=== PATIENT | male | born 1990 | race Caucasian/White ===

== ENCOUNTER 2021-03-11 13:34 | Outpatient (CLI) | payer MEDICAID, SELFPAY ==
--- NOTE | 2021-03-11 13:40 | XR_ITS ---
WS: [id number] LATERAL LUMBAR SPINE: 3 view. Lateral radiographs are performed in upright neutral, flexion and extension to the patient's toleranc e. HISTORY: LOW BACK PAIN COMPARISON: None available. Normal posterior lumbar alignment. No disc space narrowing or fracture. Mild facet joint arthritis L4 -5 and L5-S1. With flexion and extension there is no instability. XR/XR lumbar spine f/e only [id number] IMPRESSION: No lumbar spine instability.
--- NOTE | 2021-03-11 13:41 | CT_ITS ---
WS: [id number] CT LUMBAR SPINE, noncontrast. HISTORY: LOW BACK PAIN TECHNIQUE: Contiguous 2.5 mm axial imaging are performed. Sagittal and coronal reformats are submitte d and reviewed. All CT scans at [facility] use at least one of these dose optimization techni ques: automated exposure control; mA and/or kV adjustment per patient size (includes targeted exams w here dose is matched to clinical indication); or iterative reconstruction. IV contrast: None DLP: 2043.98 mGycm COMPARISON: None available. Normal posterior lumbar alignment. Disc spaces and vertebral body heights are normal. Very mild facet joint arthritis at L5-S1. No pars defects. L1-2: Normal. L2-3: Normal. L3-4: Very minimal symmetric annular disc bulging with no stenosis or protrusion. L4-5: Mild annular disc bulging. No stenosis or protrusions. Mild facet joint arthritis. L5-S1: Mild diffuse annular disc bulging. Broad-based disc bulging posteriorly encroaching upon the v entral thecal sac. There is very mild foraminal narrowing due to combination of osteophytes from the vertebral bodies and the disc bulging. Visualized retroperitoneum is normal. CT/CT lumbar spine wo con* [id number] IMPRESSION: 1. No high-grade central or foraminal stenosis. 2. No lumbar spine fracture. 3. Mild bilateral foraminal narrowing at L5-S1 due to small vertebral body ost eophytes and annular disc bulging.
== END 2021-03-11 13:35 | disposition home or self-care (01) ==
PROVIDERS: Visit Provider Nurse Practitioner
DX: M25.78 Osteophyte, vertebrae (principal); M51.27 Other intervertebral disc displacement, lumbosacral region
CPT/HCPCS: 72120; 72131

== ENCOUNTER 2021-04-12 14:22 | Inpatient (IN) | payer MEDICAID, SELFPAY ==
[2021-04-12 14:44] VITALS: BP 136/89; PULSE 81; RESP 18; TEMP 36.6; O2SAT 99; BMI 25.8
--- NOTE | 2021-04-12 14:52 | W.ED.PSYCHS ---
HPI - Psych General: Chief Complaint: Psychiatric Symptoms Stated Complaint: SI, possibly due to new meds Time Seen by Provider: 04/12/21 14:52 History of Present Illness: HPI Narrative: Mr. Cruz is a 31-year-old gentleman with significant past medical history of depression who presents emergency department due to suicidal ideation. He reports a longstanding history of depression and has been more or less on his current medication regimen for a number of years. He has had dose adjustments including adjustment off and onto his Trintellix. Recently he was stopped on his Xanax. Since that time he has noted behavior changes and missing time. He woke up this morning on the side of the road and does not recall how he got there. He endorses his mother noticing behavior changes. He does not specifically endorse suicidal ideation but says that he feels weird and has this deep down sense of doom. He denies suicide plan. No hallucinations. Overall the course of symptoms has been worsening. He has not had similar episodes of past. No other specific exacerbating or alleviating factors identified. Review of Systems General: Reports: 10 or more systems reviewed and unremarkable except in HPI and below PFSH ED PFSH: Medical History Psychiatric care Physical Exam Narrative: EXAM NARRATIVE: GENERAL/CONSTITUTIONAL - well-appearing. No acute distress. Eyes -no scleral icterus, no conjunctival injection ENMT - Atraumatic external nose and ears. Moist mucous membranes NECK - supple. trachea midline CARDIOVASCULAR - regular rate and rhythm. RESPIRATORY -clear to auscultation bilaterally. ABDOMEN/GI - Nontender/Nondistended. MSK - Extremities without obvious deformity or tenderness to palpation SKIN - Warm, Dry NEURO - alert and appropriately oriented. Moves all extremities equally. PSYCH -somewhat anxious Course ED course: - Patient was seen and evaluated by me at bedside - Patient placed on cardiac monitors, IV access obtained - Initial evaluation notable for exam as noted above, no acute distress, nontoxic. No evidence of psychosis - Labs notable for no significant abnormality that would explain patient's symptoms. - There are some symptoms that patient expresses in history which are atypical for psychiatric etiology, additionally change in characteristic of headaches. Therefore imaging warranted, Imaging notable for no mass or intracranial hemorrhage. - Based on patient history, evaluation, labs, and imaging as interpreted the most likely cause of the patient's condition is worsening depression with suicidal ideation - Based on ED evaluation at this point there is no obvious condition that would preclude the patient from inpatient management of psychiatric concerns. - Psychiatry service contacted and agreed to admit the patient. - Patient was admitted without further deterioration or significant events. Vital Signs: Vital signs: Vital Signs Temperature 98.4 F 04/15/21 13:43 Pulse Rate 72 04/15/21 13:43 Respiratory Rate 17 04/15/21 13:43 Blood Pressure 110/66 04/15/21 13:43 Pulse Oximetry 98 04/15/21 13:43 MDM - Psych Medical Records: Attestation: I reviewed the patient's medical records. Lab Data: Attestation: I reviewed the patient's lab results. Labs: Lab Results 04/12/21 04/12/21 04/12/21 16:29 16:29 16:30 WBC 7.8 10^3/uL 10^3/ uL (4.0-10.0) RBC 4.76 10^6/uL 10^6 /uL (4.1-5.3) Hgb 15.2 g/dL g/dL (11.7-16.6) Hct 44.0 % % (42.0-52.0) MCV 92.4 fl fl (80-94) MCH 31.9 pg pg (28.0-34.0) MCHC 34.5 g/dL g/dL (30.0-36.0) RDW 12.7 % % (12.1-15.1) Plt Count 229 10^3/cmm 10^3 /cmm (130-400) MPV 10.5 fL H fL (7.4-10.4) Neut % (Auto) 61.2 % % Lymph % (Auto) 31.1 % % Amelia % (Auto) 6.8 % % Eos % (Auto) 0.3 % % Baso % (Auto) 0.3 % % Neut # (Auto) 4.76 10^3/uL 10^3 /uL (1.8-7.7) Lymph # (Auto) 2.4 10^3/uL 10^3/ uL (0.8-4.8) Amelia # (Auto) 0.5 10^3/uL 10^3/ uL (0.2-0.9) Eos # (Auto) 0.0 10^3/uL 10^3/ uL (0.0-0.8) Baso # (Auto) 0.0 10^3/uL 10^3/ uL (0.0-0.1) Nucleated RBC % (a uto) 0 % % Nucleated RBCs # 0.0 /100WBC /100W BC Sodium 137 mmol/L mmol/L (136-145) Potassium 3.6 mmol/L mmol/L (3.5-5.1) Chloride 99 mmol/L mmol/L (98-107) Carbon Dioxide 25 mmol/L mmol/L (22-29) Anion Gap 16.6 (5-19) BUN 12 mg/dL mg/dL (6-20) Creatinine 0.7 mg/dL mg/dL (0.7-1.2) GFR Calculation 130.7 mL/min H mL /min (90-130) Glucose 73 mg/dL mg/dL (65-115) Calculated Osmolal ity 282 mOsm/kg L mOs m/kg (285-295) Calcium 9.5 mg/dL mg/dL (8.5-10.5) Total Bilirubin 0.8 mg/dL mg/dL (0.15-1.2) AST 19 U/L U/L (0-40) ALT 17 U/L U/L (0-41) Alkaline Phosphata se 73 IU/L IU/L (40-130) Total Protein 7.2 g/dL g/dL (6.6-8.7) Albumin 4.8 g/dL g/dL (3.5-5.2) Globulin 2.4 g/dL g/dL (1.3-4.6) TSH 0.52 uIU/mL uIU/m L (0.27-4.20) Salicylates < 0.3 mg/dL L mg/ dL (3-10) Urine Opiates Scre en Negative ng/mL ng /mL (Negative) Acetaminophen < 5.0 ug/mL L ug/ mL (10-30) Ur Barbiturates Sc reen Negative ng/mL ng /mL (Negative) Ur Phencyclidine S crn Negative ng/mL ng /mL (Negative) Ur Amphetamines Sc reen Negative ng/mL ng /mL (Negative) U Benzodiazepines Scrn Negative ng/mL ng /mL (Negative) Urine Cocaine Scre en Negative ng/mL ng /mL (Negative) U Marijuana (THC) Screen Positive ng/mL H ng/mL (Negative) Ethyl Alcohol < 10 mg/dL mg/dL (0-10) Discharge Plan Discharge Admit Provider: Michael Quinteros Condition: Stable Discharge Orders: Discharge Order (Routine); Ordered 04/15/21 Ordered By: Michael Quinteros Discharge Diet: Regular Discharge Activity: Resume usual activity Coding Level of Care Code ED Air Quality Manager for Marianna Brock
--- NOTE | 2021-04-12 15:22 | CT_ITS ---
WS: [id number] CT HEAD NONCONTRAST HISTORY: headache, amnesia TECHNIQUE: Contiguous axial imaging performed through the brain in 2.5 mm imaging. Bone and soft tiss ue windows. Sagittal and coronal reformats reviewed. All CT scans at [facility] use at least one of these dose optimization techniques: automated exposure control; mA and/or kV adjustment per pa tient size (includes targeted exams where dose is matched to clinical indication); or iterative recon struction. DLP: 787.0 mGy.cm COMPARISON: None available. No acute intracranial hemorrhage, midline shift or mass effect. No atrophy or prior infarcts or herniation. Ventricles: Normal size with no hydrocephalus. Paranasal sinuses: As visualized are clear. Mastoid air cells: Well pneumatized. Calvarium and scalp: Skull is intact with no soft tissue edema or swelling. CT/CT head wo con* [id number] IMPRESSION: Negative head CT.
[2021-04-12 16:15] VITALS: BP 140/97; PULSE 80; RESP 18; TEMP 37.2; O2SAT 97
[2021-04-12 16:42] LABS: Basophils % 0.3 %; Eosinophils % 0.3 %; Hemoglobin 15.2 g/dL (11.7-16.6); Lymphocytes # 2.4 10^3/uL (0.8-4.8); Lymphocytes % 31.1 %; Mean Corpuscular HGB Conc 34.5 g/dL (30.0-36.0); Mean Corpuscular Hemoglobin 31.9 pg (28.0-34.0); Mean Corpuscular Volume 92.4 fl (80-94); Mean Platelet Volume 10.5 fL (7.4-10.4); Monocytes # 0.5 10^3/uL (0.2-0.9); Monocytes % 6.8 %; Neutrophils # 4.76 10^3/uL (1.8-7.7); Neutrophils % 61.2 %; Nucleated Red Blood Cells % 0 %; Platelet Count 229 10^3/cmm (130-400); Red Blood Count 4.76 10^6/uL (4.1-5.3); Red Cell Distribution Width 12.7 % (12.1-15.1); White Blood Count 7.8 10^3/uL (4.0-10.0)
[2021-04-12 17:17] LABS: Alanine Aminotransferase 17 U/L (0-41); Albumin Level 4.8 g/dL (3.5-5.2); Alkaline Phosphatase 73 IU/L (40-130); Anion Gap 16.6 (5-19); Aspartate Amino Transferase 19 U/L (0-40); Blood Urea Nitrogen 12 mg/dL (6-20); Calcium 9.5 mg/dL (8.5-10.5); Carbon Dioxide 25 mmol/L (22-29); Chloride 99 mmol/L (98-107); Globulin 2.4 g/dL (1.3-4.6); Glomerular Filtration Rate 130.7 mL/min (90-130); Glucose 73 mg/dL (65-115); Osmolality Calculated 282 mOsm/kg (285-295); Potassium 3.6 mmol/L (3.5-5.1); Sodium 137 mmol/L (136-145); Thyroid Stimulating Hormone 0.52 uIU/mL (0.27-4.20); Total Bilirubin 0.8 mg/dL (0.15-1.2); Total Protein 7.2 g/dL (6.6-8.7)
[2021-04-12 17:20] LABS: Acetaminophen < 5.0 ug/mL (10-30); Alcohol Level < 10 mg/dL (0-10); Salicylate < 0.3 mg/dL (3-10)
[2021-04-12 17:52] LABS: Amphetamines Screen Urine Negative (Negative); Barbiturates Screen Urine Negative (Negative); Benzodiazepines Screen Urine Negative (Negative); Cocaine Screen Urine Negative (Negative); Opiate Screen Urine Negative (Negative); PCP Screen Urine Negative (Negative); THC Screen Urine Positive (Negative)
[2021-04-12 18:23] VITALS: BP 141/90; PULSE 93; RESP 19; O2SAT 93
--- NOTE | 2021-04-12 18:57 | PC.NURSE ---
Called and gave report to Leticia Rose
[2021-04-12 19:32] VITALS: BP 121/83; PULSE 65; RESP 15; O2SAT 97
[2021-04-12] MEDS: hyDROXYzine 25 mg Capsule 50 MG PO (20:34)
[2021-04-12] MEDS: nicotine 2 mg Gum BUCCAL (20:35)
--- NOTE | 2021-04-12 22:21 | PC.ADMIT ---
[address] Admission Note: The patient,Maynor Cruz,31 y/o, was given written information regarding hospital policies, unit procedures and contact persons. Patient's smoking status: . Vital Signs - 8 hr 04/12/21 14:44 04/12/21 16:15 04/12/21 18:23 Temperature 97.9 F 98.9 F Pulse Rate 81 80 93 Respiratory Rate 18 18 19 H Blood Pressure 136/89 140/97 141/90 Pulse Oximetry 99 97 93 04/12/21 19:32 Temperature Pulse Rate 65 Respiratory Rate 15 Blood Pressure 121/83 Pulse Oximetry 97 Mr. Cruz is a 31-year-old gentleman with significant past medical history of depression who presents emergency department due to suicidal ideation. He reports a longstanding history of depression and has been more or less on his current medication regimen for a number of years. He has had dose adjustments including adjustment off and onto his Trintellix. Recently he was stopped on his Xanax. Since that time he has noted behavior changes and missing time. He woke up this morning on the side of the road and does not recall how he got there. He endorses his mother noticing behavior changes. He does not specifically endorse suicidal ideation but says that he feels weird and has this deep down sense of doom. He denies suicide plan. No hallucinations. Overall the course of symptoms has been worsening. He has not had similar episodes of past. No other specific exacerbating or alleviating factors identified. Patient states he had his Mother bring him to the ER for psych evaluation. He states he feels like he needs some medication changes due to increased depression and occasional SI. He states he was unable to get his [place] refilled due [place] and he has not had it for approx 1 week. He denies any severe withdrawal symptoms since not taking the Xanax. Patient is cooperative with admission assessment and good historian. Skin assessment is unremarkable. He rates depression 3, anxiety 3. Denies any SI/HI, hallucinations. He does c/o chronic pain to his mid back area. States he has a hx of several back injuries and he is prescribed Hydrocodone from the pain clinic for his chronic pain. Patient oriented to unit and provided a beverage. He retired directly to bed. Will continue to monitor and follow plan of care. Q 15 min safety checks per protocol.
[2021-04-13 06:00] VITALS: RESP 16
[2021-04-13] MEDS: propranolol 20 mg Tablet 10 MG PO ×2 (09:11→17:50)
[2021-04-13] MEDS: gabapentin 300 mg Capsule 600 MG PO ×2 (09:11→17:50)
--- NOTE | 2021-04-13 12:43 | NPU.GN ---
[facility] Topic Self Care Bingo/ Crisis Plan Work Sheet General Mood of Group: Maynor did attend and participate in group today. His demeanour was good and he was social in group with this magnetic tape typewriter operator and others. Maynor seems stable and reported that he is just there to get his medications adjusted no suicidal or homicidal thoughts. Maynor was interested in [facility] program and this magnetic tape typewriter operator aided him in completing the intake form for services.
--- NOTE | 2021-04-13 13:54 | W.PM.NPUH&PS ---
Providers/Chief Complaint Admitting Physician: Michael Quinteros MD Chief Complaint: SI, possibly due to new meds HPI NPU History of Present Illness Maynor Cruz is a 31 year old male who presented to the ED with the following report: Chief Complaint: Psychiatric Symptoms Stated Complaint: SI, possibly due to new meds Time Seen by Provider: 04/12/21 14:52 History of Present Illness: HPI Narrative: Mr. Cruz is a 31-year-old gentleman with significant past medical history of depression who presents emergency department due to suicidal ideation. He reports a longstanding history of depression and has been more or less on his current medication regimen for a number of years. He has had dose adjustments including adjustment off and onto his Trintellix. Recently he was stopped on his Xanax. Since that time he has noted behavior changes and missing time. He woke up this morning on the side of the road and does not recall how he got there. He endorses his mother noticing behavior changes. He does not specifically endorse suicidal ideation but says that he feels weird and has this deep down sense of doom. He denies suicide plan. No hallucinations. Overall the course of symptoms has been worsening. He has not had similar episodes of past. No other specific exacerbating or alleviating factors identified. The patient reports that he has been hospitalized likely seven times in his life. He said it has been years since his last hospitalization. He has had outpatient services at [facility], [place], specifically at [place]. He reports that his medications include Trintillix 10 mg po q daily, Rexulti 1 mg po q daily, Xanax, Propranolol, and Neurontin. He reports that he does not smoke cigarettes, drink alcohol, or smoke marijuana. He denies any other illicit drug use. He reports that he does get pain medication from the pain clinic in [facility]. He denies ever being at a drug rehabilitation or having a DUI. He reports that he is not sure what has happened but it is like his medication stopped working. He reports that he feels like he has been adherent in following the protocols for his medication. He reports that he is not sure why his mom was reporting that she felt he was acting weird, but he does not feel like he was acting in any strange sort of way. He denies any suicide attempts but has a history, in the past, of self-injurious behavior. We discussed the risks, benefits, and alternatives on increasing his Rexulti to 2 mg po q daily, and increasing his Trintillix to 20 mg po q daily, and he understood and agreed to proceed as is documented in this note. PSYCHIATRIC HISTORY: As above. SUBSTANCE ABUSE HISTORY: As above. FAMILY HISTORY: He reports that there may have been some mental health issues on his father?s side of the family, but he is not sure. He denies any mental health and addiction issues, otherwise, on either side of the family, although he reports that his paternal grandmother completed suicide, but he did not know anything about her mental health story. DEVELOPMENTAL HISTORY: The patient denies any issues with his mother?s or delivery of him. He learned to walk and talk and met all developmental milestones on time. The patient denies speech therapy, learning support, emotional support, or special education classes. PSYCHOSOCIAL HISTORY: The patient reports that his mother and father were together when he was born, and he is the only product of that union. His mother had two children previously, who are his half-siblings; his father never had any other children. He reports that a his childhood was okay, and there was no emotional, physical, or sexual abuse. He reports that he made it to the tenth grade, but did get his [employer], which is somewhat barb to the GED. He endorses being heterosexual, with his longest relationship being six to seven years. He has never been ; he has two children. He has never been in the . He denies any hinduism belief system. 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 He endorses living in a house with his mom, brodie, and his younger brother. LEGAL HISTORY: He reports that he has been to long-term about three times, the longest time was about one year. MEDICAL HISTORY: Please see ED note for any additional details, otherwise, denied. Meds NPU Home Medications Medication Instructions Recorded Confirmed Last Taken Type alprazolam 0.25 mg PO TID PRN 04/12/21 04/12/21 Unknown History brexpiprazole [Rexulti] 1 mg PO DAILY 04/12/21 04/12/21 04/11/21 History gabapentin 600 mg PO BID 04/12/21 04/12/21 04/11/21 History hydrocodone-acetaminophen 1 tab PO TID PRN 04/12/21 04/12/21 04/11/21 History ibuprofen 600 mg PO Q4H PRN 04/12/21 04/12/21 Unknown History naloxone [Narcan] See Rx Instructions .ROUTE .COMPLEX 04/12/21 04/12/21 Unknown History propranolol 10 mg PO BID 04/12/21 04/12/21 04/11/21 History vortioxetine [Trintellix] 10 mg PO DAILY 04/12/21 04/12/21 04/11/21 History Allergies Allergy/AdvReac Type Severity Reaction Status Date / Time No Known Allergies Allergy Verified 04/12/21 15:43 PFSH NPU PFSH: Medical History Psychiatric care Mental Status Exam MSE Comments: This is a well-nourished, well-developed, white male, with adequate dress, grooming, and eye contact. No abnormal movements. Cooperative with exam in no acute distress. Speech was decreased rate and volume. Mood described as somewhat down; affect congruent. Thought process, organized. Thought content: patient denied any suicidal or homicidal ideation, there were no delusions reported or noted, patient denied any auditory or visual hallucinations. Attention, concentration, and memory appear intact but none were formally tested. He is alert and oriented times three. Insight and judgment appear fair. Impulse control is limited. Vitals/I&O/Wt Last Vital Signs Temp 98.9 F 04/12/21 16:15 Pulse 65 04/12/21 19:32 Resp 16 04/13/21 06:00 BP 121/83 04/12/21 19:32 Pulse Ox 97 04/12/21 19:32 Weight last 48 hrs Weight 79.379 kg Data NPU : 04/12/21 16:29 04/12/21 16:29 A&P Assessment and plan (1) Major depressive disorder, recurrent: Status: Acute Additional A&P Information This is a 31 -year-old, white male, with a long history of psychiatric treatment and mental health challenges, with recent reports of diminished functioning, who has genetic loading for mental health issues, who presents open to making some adjustments in his medication. 1. Continue current medication, except; increase Rexulti to 2 mg po q daily, and increase Trintillix to 20 mg po q daily. 2. Encourage individual, group, and milieu therapy. 3. Continue q-15 minute checks for safety. Involuntary Hold Information 96 Hour Hold: 96 Hour Involuntary Admission: No Attestations NPU Medical Necessity Statement*: Inpatient hospitalization is medically necessary and the clinically appropriate intervention, at this time. We will monitor medications and make changes as indicated. Patient will be in the hospital for over two midnights. Likely length of stay is two to four days. Coding Level of Care Code Acute Fire Control Technician B for Marianna Brock Diagnoses Major depressive disorder, recurrent F33.9
[2021-04-13 14:00] VITALS: BP 106/73; PULSE 61; RESP 17; TEMP 36.9; O2SAT 98
[2021-04-13] MEDS: nicotine 2 mg Gum BUCCAL ×2 (15:02→17:50)
[2021-04-13] MEDS: hyDROXYzine 25 mg Capsule 50 MG PO (20:03)
[2021-04-13] MEDS: ibuprofen 600 mg Tablet PO (20:03)
[2021-04-13 22:00] VITALS: RESP 18
[2021-04-14 06:00] VITALS: BP 119/77; PULSE 70; RESP 17; O2SAT 95
--- NOTE | 2021-04-14 12:17 | NPU.GN ---
[facility] Topic:Positive Thinking / Positive Affirmations General Mood of Group: Maynor attended group and was social and active in group today. He seems stable mentally and emotionally as he previously stated he is just there to get his medications fixed.
[2021-04-14] MEDS: NON-FORMULARY MEDICATION (Vortioxetine [Trintellix] 10 MG) 2 EACH PO (12:40)
[2021-04-14] MEDS: NON-FORMULARY MEDICATION (Brexpiprazole [Rexulti] 1 MG) 2 EACH PO (12:40)
[2021-04-14] MEDS: propranolol 20 mg Tablet 10 MG PO ×2 (12:56→17:09)
[2021-04-14] MEDS: gabapentin 300 mg Capsule 600 MG PO ×2 (12:56→17:08)
[2021-04-14 14:00] VITALS: RESP 16; TEMP 36.7
[2021-04-14] MEDS: nicotine 2 mg Gum BUCCAL (17:08)
[2021-04-14] MEDS: hyDROXYzine 25 mg Capsule 50 MG PO (17:17)
--- NOTE | 2021-04-14 18:22 | P.NPUPN_ITS ---
Subjective NPU Subjective: Interval history: Patient was at today reporting a feels better with the increase in his medication. Endorses being hopeful that we can get a discharge sooner rather than later. We discussed the possibility of discharge tomorrow. Reports he is eating and sleeping better. Mental Status Exam MSE Comments: This is a well-nourished, well-developed, white male, with adequate dress, grooming, and eye contact. No abnormal movements. Cooperative with exam in no acute distress. Speech was decreased rate and volume. Mood described as better; affect congruent. Thought process, organized. Thought content: patient denied any suicidal or homicidal ideation, there were no delusi ons reported or noted, patient denied any auditory or visual hallucinations. Attention, concentration, and memory appear intact but none were formally tested. He is alert and oriented times three. Insight and judgment appear fair. Impulse control is limited. Vitals/I&O/Wt Last Vital Signs Temp 98.0 F 04/14/21 20:34 Pulse 69 04/14/21 20:34 Resp 17 04/14/21 20:34 BP 116/80 04/14/21 20:34 Pulse Ox 99 04/14/21 20:34 Data NPU : 04/12/21 16:29 04/12/21 16:29 A&P Additional A&P Information (1) Major depressive disorder, recurrent: Additional A&P Information This is a 31 -year-old, white male, with a long history of psychiatric treatment and mental health challenges, with recent reports of diminished functioning, who has genetic loading for mental health issues, who presents open to making some adjustments in his medication. 1. Continue current medication. 2. Encourage individual, group, and milieu therapy. 3. Continue q-15 minute checks for safety. Involuntary Hold Information 96 Hour Hold: 96 Hour Involuntary Admission: No Attestations NPU Medical Necessity Statement*: Inpatient hospitalization is medically necessary and the clinically appropriate intervention, at this time. We will monitor medications and make changes as indicated. Likely length of stay is 1-3 days. Coding Level of Care Code Acute Ophthalmic Lens Inspector for Marianna Brock
[2021-04-14 20:34] VITALS: BP 116/80; PULSE 69; RESP 17; TEMP 36.7; O2SAT 99
[2021-04-15 06:00] VITALS: BP 110/66; PULSE 72; RESP 17; TEMP 36.9; O2SAT 98
[2021-04-15] MEDS: gabapentin 300 mg Capsule 600 MG PO (08:44)
[2021-04-15] MEDS: propranolol 20 mg Tablet 10 MG PO (08:45)
[2021-04-15] MEDS: NON-FORMULARY MEDICATION (Brexpiprazole [Rexulti] 1 MG) 2 EACH PO (08:45)
[2021-04-15] MEDS: NON-FORMULARY MEDICATION (Vortioxetine [Trintellix] 20 MG) 20 EACH PO (08:46)
[2021-04-15] MEDS: fixodent 39 gm Tube 1 APPLIC DENTAL (09:02)
--- NOTE | 2021-04-15 10:27 | NPU.GN ---
[facility] Topic:Group Topic: Good Secrets Vs. Bad Secrets Psycho Therapy General Mood of Group: Maynor did attend and participate in group today. He was also getting frustrated with two female patients that were being loud and distracting in group therapy , and he feels that it is disrespectful to everyone that is there for group and cant hear to learn. He apologized to this advertising copy writer for the other patients behaviors.
[2021-04-15] MEDS: OLANZapine 5 mg ODT PO (12:54)
[2021-04-15] MEDS: ibuprofen 600 mg Tablet PO (12:54)
[2021-04-15] MEDS: nicotine 2 mg Gum BUCCAL ×2 (12:54→15:17)
--- NOTE | 2021-04-15 13:40 | P.NPUDS_ITS ---
Diagnoses at Discharge Discharge Diagnosis (1) Major depressive disorder, recurrent: Status: Acute Reason for Visit Reason for Visit: SI, possibly due to new meds Brief History: History of Present Illness Maynor Cruz is a 31 year old male who presented to the ED with the following report: Chief Complaint: Psychiatric Symptoms Stated Complaint: SI, possibly due to new meds Time Seen by Provider: 04/12/21 14:52 History of Present Illness: HPI Narrative: Mr. Cruz is a 31-year-old gentleman with significant past medical history of depression who presents emergency department due to suicidal ideation. He reports a longstanding history of depression and has been more or less on his current medication regimen for a number of years. He has had dose adjustments including adjustment off and onto his Trintellix. Recently he was stopped on his Xanax. Since that time he has noted behavior changes and missing time. He woke up this morning on the side of the road and does not recall how he got there. He endorses his mother noticing behavior changes. He does not specifically endorse suicidal ideation but says that he feels weird and has this deep down sense of doom. He denies suicide plan. No hallucinations. Overall the course of symptoms has been worsening. He has not had similar episodes of past. No other specific exacerbating or alleviating factors identified. The patient reports that he has been hospitalized likely seven times in his life. He said it has been years since his last hospitalization. He has had outpatient services at [facility], specifically at [place]. He reports that his medications include Trintillix 10 mg po q daily, Rexulti 1 mg po q daily, Xanax, Propranolol, and Neurontin. He reports that he does not smoke cigarettes, drink alcohol, or smoke marijuana. He denies any other illicit drug use. He reports that he does get pain medication from the [facility]. He denies ever being at a drug rehabilitation or having a DUI. He reports that he is not sure what has happened but it is like his medication stopped working. He reports that he feels like he has been adherent in following the protocols for his medication. He reports that he is not sure why his mom was reporting that she felt he was acting weird, but he does not feel like he was acting in any strange sort of way. He denies any suicide attempts but has a history, in the past, of self-injurious behavior. We discussed the risks, benefits, and alternatives on increasing his Rexulti to 2 mg po q daily, and increasing his Trintillix to 20 mg po q daily, and he understood and agreed to proceed as is documented in this note. PSYCHIATRIC HISTORY: As above. SUBSTANCE ABUSE HISTORY: As above. FAMILY HISTORY: He reports that there may have been some mental health issues on his father?s side of the family, but he is not sure. He denies any mental health and addiction issues, otherwise, on either side of the family, although he reports that his paternal grandmother completed suicide, but he did not know anything about her mental health story. DEVELOPMENTAL HISTORY: The patient denies any issues with his mother?s or delivery of him. He learned to walk and talk and met all developmental milestones on time. The patient denies speech therapy, learning support, emotional support, or special education classes. PSYCHOSOCIAL HISTORY: The patient reports that his mother and father were together when he was born, and he is the only product of that union. His mother had two children previously, who are his half-siblings; his father never had any other children. He reports that a his childhood was okay, and there was no emotional, physical, or sexual abuse. He reports that he made it to the tenth grade, but did get his [employer], which is somewhat barb to the GED. He endorses being heterosexual, with his longest relationship being six to seven years. He has never been ; he has two children. He has never been in the . He denies any sikh belief system. 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 He endorses living in a house with his mom, brodie, and his younger brother. LEGAL HISTORY: He reports that he has been to nursing home about three times, the longest time was about one year. MEDICAL HISTORY: Please see ED note for any additional details, otherwise, denied. Hospital Course Hospital Course He slowly acclimated to the individual, group and milieu therapies provided. We did increase his Trintellix to 20 mg daily and his Rexulti to 2 mg daily and he showed modest improvement. He continued to endorse some anxiety is hopeful we would refill his Xanax but we defer that to his outpatient provider given 1 that he is more than he is prescribed, 2 he is on an opiate as well and 3, not wanting to force the hand of an outpatient provider to prescribe Xanax at all and to 2 before the coprescribed with another controlled substance. He was able to contract for safety outside the hospital prior to discharge. During the hospitalization, patient had routine laboratory studies which were within normal limits except for few outliers. Additionally there was a general medical evaluation which was also within normal limits and revealed no new acute processes. Discharge Summary: At the time of discharge, he denied psychosis or lethality. Mood and anxiety were well managed. Patient endorsed a plan to avoid all drugs of abuse and follow-up with the aftercare recommendations of the treatment team. Patient was evaluated and deemed to be absent credible lethality, and had achieved the maximum benefit from an inpatient hospitalization, so was discharged. Involuntary Hold Information 96 Hour Hold: 96 Hour Involuntary Admission: No Mental Status Exam MSE Comments: This is a well-nourished, well-developed, white male, with adequate dress, grooming, and eye contact. No abnormal movements. Cooperative with exam in no acute distress. Speech was decreased rate and volume. Mood described as better; affect congruent. Thought process, organized. Thought content: patient denied any suicidal or homicidal ideation, there were no delusions reported or noted, patient denied any auditory or visual hallucinations. Attention, concentration, and memory appear intact but none were formally tested. He is alert and oriented times three. Insight and judgment appear fair. Impulse control is limited. Discharge Data Data Completed and Pending: Completed Studies During Hospitalization Category Date Time Status CT head wo con* 7 0450 Urgent Cat Scan 04/12/21 15:22 Completed Vitals: Last Vital Signs Temp 98.4 F 04/15/21 06:00 Pulse 72 04/15/21 06:00 Resp 17 04/15/21 06:00 BP 110/66 04/15/21 06:00 Pulse Ox 98 04/15/21 06:00 Discharge Plan Discharge Patient Disposition: Home Condition: Stable Prescriptions: Continued hydrocodone-acetaminophen 10-325 mg tablet 1 tab PO TID PRN (Reason: Pain) RF: 0 alprazolam 0.25 mg tablet 0.25 mg PO TID PRN (Reason: pt states not had for a week) RF: 0 ibuprofen 200 mg Tablet 600 mg PO Q4H PRN (Reason: Pain) RF: 0 Narcan 4 mg/actuation spray,non-aerosol See Rx Instructions .ROUTE .COMPLEX RF: 0 gabapentin 600 mg tablet 600 mg PO BID 30 Days Qty: 60 RF: 1 propranolol 10 mg tablet 10 mg PO BID 30 Days Qty: 60 RF: 1 Changed Trintellix 10 mg tablet 20 mg PO DAILY 30 Days Qty: 60 RF: 1 Rexulti 1 mg tablet 2 mg PO DAILY 30 Days Qty: 60 RF: 1 Discharge Orders: Discharge Order (Routine); Ordered 04/15/21 Ordered By: Michael Quinteros Referrals: Majo Llanes MD [[place]] - 05/25/21 9:30 am Discharge Diet: Regular Discharge Activity: Resume usual activity Patient Instructions: Mood Disorders (ED), Opioid Safety Discharge Attestations NPU Time Spent in Discharge Care*: less than 30 min Specific Discharge Activities: Specific discharge activities: educating patient, discussing with case management social worker/social workers/dc planners, documenting/other paperwork and evaluating patient/reviewing data Coding Level of Care Code Acute Chg FW DC note Diagnoses Major depressive disorder, recurrent F33.9
[2021-04-15 13:43] VITALS: BP 110/66; PULSE 72; RESP 17; TEMP 36.9; O2SAT 98
== END 2021-04-15 16:59 | disposition home or self-care (01) | DRG 885 ==
LOC: ER 17:12 → NP 04-13 07:36
PROVIDERS: Physician Assistant; Admitting Provider Psychiatry & Neurology Psychiatry; Emergency Provider Emergency Medicine; Visit Provider Psychiatry & Neurology Psychiatry
DX: F33.9 Major depressive disorder, recurrent, unspecified (principal); R45.851 Suicidal ideations; F41.9 Anxiety disorder, unspecified; Z79.891 Long term (current) use of opiate analgesic
CPT/HCPCS: 70450; 80053; 80306; 80307; 84443; 85025; 97150; 97165; 99285

== ENCOUNTER 2021-04-19 16:52 | Inpatient (IN) | payer MEDICAID, SELFPAY ==
[2021-04-19 17:07] VITALS: BP 125/87; PULSE 107; RESP 20; TEMP 36.8; O2SAT 97; BMI 27.4
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
[2021-04-19 17:29] VITALS: BP 130/84; PULSE 103; RESP 17; TEMP 36.8; O2SAT 98
[2021-04-19 17:56] LABS: Basophils % 0.4 %; Eosinophils % 0.3 %; Hematocrit 45.8 % (42.0-52.0); Hemoglobin 15.9 g/dL (11.7-16.6); Lymphocytes # 2.9 10^3/uL (0.8-4.8); Lymphocytes % 37.7 %; Mean Corpuscular HGB Conc 34.7 g/dL (30.0-36.0); Mean Corpuscular Hemoglobin 31.8 pg (28.0-34.0); Mean Corpuscular Volume 91.6 fl (80-94); Mean Platelet Volume 10.5 fL (7.4-10.4); Monocytes # 0.4 10^3/uL (0.2-0.9); Monocytes % 5.7 %; Neutrophils # 4.33 10^3/uL (1.8-7.7); Neutrophils % 55.6 %; Nucleated Red Blood Cells % 0 %; Platelet Count 293 10^3/cmm (130-400); Red Cell Distribution Width 12.7 % (12.1-15.1); White Blood Count 7.8 10^3/uL (4.0-10.0)
[2021-04-19 18:13] LABS: Acetaminophen < 5.0 ug/mL (10-30); Alanine Aminotransferase 21 U/L (0-41); Albumin Level 5.1 g/dL (3.5-5.2); Alcohol Level 265 mg/dL (0-10); Alkaline Phosphatase 72 IU/L (40-130); Aspartate Amino Transferase 18 U/L (0-40); Blood Urea Nitrogen 6 mg/dL (6-20); Calcium 9.1 mg/dL (8.5-10.5); Carbon Dioxide 26 mmol/L (22-29); Chloride 108 mmol/L (98-107); Creatinine Clr Calc Pharmacy 129.6083; Globulin 2.5 g/dL (1.3-4.6); Glucose 109 mg/dL (65-115); Osmolality Calculated 302 mOsm/kg (285-295); Salicylate < 0.3 mg/dL (3-10); Sodium 147 mmol/L (136-145); Total Bilirubin 0.2 mg/dL (0.15-1.2); Total Protein 7.6 g/dL (6.6-8.7)
[2021-04-19 19:03] LABS: Amphetamines Screen Urine Negative (Negative); Barbiturates Screen Urine Negative (Negative); Benzodiazepines Screen Urine Negative (Negative); Cocaine Screen Urine Negative (Negative); Opiate Screen Urine Negative (Negative); PCP Screen Urine Negative (Negative); THC Screen Urine Positive (Negative)
--- NOTE | 2021-04-19 19:43 | PC.NURSE ---
Per Dr. Howard, pt does not need a sitter. AIXA Delgado notified.
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
[2021-04-19 21:11] VITALS: BP 125/89; PULSE 85; RESP 16; TEMP 36.9; O2SAT 99
[2021-04-19 21:20] VITALS: BP 130/84; PULSE 103; RESP 17; TEMP 36.8; O2SAT 98
[2021-04-19] MEDS: LORazepam 2 mg/mL INJ 1 mL IM (21:48)
[2021-04-19 22:00] VITALS: RESP 15
--- NOTE | 2021-04-19 22:40 | PC.ADMIT ---
[address] Admission Note: Cruz is a 31 YO male admitted under voluntary status for erratic behavior and suicidal ideation. He is alert and oriented to name a date. Patient denies current suicidal/homicidal ideation and reports he is here for treatment of anxiety. Patient reports nausea, headache and visual disturbance. His is perspiring, tremulous and anxious. He is vomiting and dry heaving intermittently during nursing assessment. Patient denies he has ever used alcohol despite notification of blood alcohol level. Once patient was alerted that prescribed ativan was for alcohol withdrawal symptoms, he states Well I don't drink, but I may have drank today. Patient's speech is clear. He denies hallucinations. he denies racing thoughts. His eye contact is poor. His mood is anxious with congruent affect. No skin abnormalities noted on assessment. Contraband removed from patient's person. Continue to monitor patient. The patient,Maynor Cruz,31 y/o, was given written information regarding hospital policies, unit procedures and contact persons. Patient's smoking status: . Vital Signs - 8 hr 04/19/21 17:07 04/19/21 17:29 Temperature 98.3 F 98.3 F Pulse Rate 107 H 103 H Respiratory Rate 20 H 17 Blood Pressure 125/87 130/84 Pulse Oximetry 97 98
[2021-04-19] MEDS: ondansetron 4 MG Tablet PO (22:59)
[2021-04-19] MEDS: nicotine 2 mg Gum BUCCAL (22:59)
[2021-04-20] MEDS: hyDROXYzine 25 mg Capsule 50 MG PO ×3 (00:10→15:12)
[2021-04-20] MEDS: acetaminophen 325 mg Tablet 650 MG PO (00:10)
[2021-04-20 06:00] VITALS: BP 126/75; PULSE 80; RESP 15; TEMP 36.7; O2SAT 96
[2021-04-20] MEDS: LORazepam 2 mg/mL INJ 1 mL IM (08:33)
--- NOTE | 2021-04-20 08:41 | PC.NURSE ---
Patient presented, reporting he vomited his breakfast, and now dry heaving. Has headache. I feel my insides shaking Patient scored 10 on CIWA. WIll medicate with IM Ativan due to vomiting per CIWA protocol.
[2021-04-20] MEDS: nicotine 2 mg Gum BUCCAL ×3 (08:53→17:00)
[2021-04-20] MEDS: folic acid 1 mg Tablet PO (09:16)
[2021-04-20] MEDS: multivitamin therapeutic Tablet 1 TAB PO (09:16)
[2021-04-20] MEDS: thiamine 100 mg Tablet PO (09:16)
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
[2021-04-20] MEDS: propranolol 20 mg Tablet 10 MG PO ×2 (10:59→17:00)
--- NOTE | 2021-04-20 13:00 | NPU.GN ---
[facility] Topic:Coping Checkers General Mood of Group: Maynor did attend group today, he was talkative and participated very well. He seems mentally and emotionally stable at this time.
[2021-04-20 13:49] VITALS: BP 115/81; PULSE 85; RESP 16; TEMP 37.2; O2SAT 95
[2021-04-20] MEDS: ondansetron 4 MG Tablet PO (15:12)
[2021-04-20] MEDS: gabapentin 300 mg Capsule 600 MG PO (16:59)
[2021-04-20] MEDS: fixodent 39 gm Tube 1 APPLIC DENTAL (16:59)
[2021-04-20 20:04] VITALS: RESP 17
[2021-04-21] MEDS: ondansetron 4 MG Tablet PO (03:10)
[2021-04-21 06:00] VITALS: BP 116/76; PULSE 75; RESP 18; TEMP 36.9; O2SAT 98
[2021-04-21] MEDS: hyDROXYzine 25 mg Capsule 50 MG PO (06:23)
--- NOTE | 2021-04-21 06:30 | PC.NURSE ---
Patient up at 0300 with c/o mild nausea. Given PRN Zofran to good effect. Patient did get up and shower around 0400 then returned to bed. Up at 0620 with c/o mild anxiety. Took PRN Vistaril at that time.
[2021-04-21] MEDS: nicotine 2 mg Gum BUCCAL ×4 (07:49→14:57)
[2021-04-21] MEDS: thiamine 100 mg Tablet PO (07:50)
[2021-04-21] MEDS: gabapentin 300 mg Capsule 600 MG PO (07:50)
[2021-04-21] MEDS: propranolol 20 mg Tablet 10 MG PO (07:51)
[2021-04-21] MEDS: multivitamin therapeutic Tablet 1 TAB PO (07:51)
[2021-04-21] MEDS: folic acid 1 mg Tablet PO (07:51)
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
[2021-04-21 11:29] VITALS: BP 116/76; PULSE 75; RESP 18; TEMP 36.9; O2SAT 98
[2021-04-21 14:00] VITALS: PULSE 68; TEMP 37.1
== END 2021-04-21 16:20 | disposition home or self-care (01) | DRG 885 ==
LOC: ER 19:51 → NP 20:25
PROVIDERS: Physician Assistant; Admitting Provider Psychiatry & Neurology Psychiatry; Emergency Provider Emergency Medicine; Visit Provider Psychiatry & Neurology Psychiatry
DX: F33.9 Major depressive disorder, recurrent, unspecified (principal); F41.9 Anxiety disorder, unspecified; F10.129 Alcohol abuse with intoxication, unspecified; F12.10 Cannabis abuse, uncomplicated; Y90.8 Blood alcohol level of 240 mg/100 ml or more; Z81.8 Family history of other mental and behavioral disorders; Z79.891 Long term (current) use of opiate analgesic
CPT/HCPCS: 80053; 80306; 80307; 85025; 96372; 97150; 97165; 99285; G0378; J2060; J3411; Q0162